=== PATIENT | male | born 2000 | race Hispanic/Latino ===

== ENCOUNTER 2023-09-16 16:07 | Emergency (ER) | payer OTHER, SELFPAY ==
[2023-09-16 16:17] VITALS: BP 128/68; PULSE 104; RESP 18; TEMP 37.7; O2SAT 99; BMI 23.3
[2023-09-16 17:08] LABS: Influenza A - CEPHEID Flu A NEGATIVE (NEGATIVE); Influenza B - CEPHEID Flu B NEGATIVE (NEGATIVE); Respiratory Syncytial Virus Negative (Negative)
[2023-09-16 17:28] LABS: COVID-19 CEPHEID 4-PLEX PCR POSITIVE (Negative)
--- NOTE | 2023-09-16 18:38 | ED.URI ---
HPI - URI/Sore Throat <Beatrice Goodman PA-C - Last Filed: 09/16/23 18:43> General Chief Complaint: Upper Respiratory Symptoms Stated Complaint: cough, fever, headache Time Seen by Provider: 09/16/23 18:28 Source: patient Mode of arrival: Ambulatory History of Present Illness HPI Narrative: Patient is a 23-year-old male for evaluation of possible COVID x3 days. He denies having had COVID before, but does report previous vaccination. He states his main symptom is coughing. He denies any shortness of breath. He notes chest pain only when he coughs. He denies sore throat. He states that Sunday was his worst symptoms of fever, but he is feeling somewhat better today. He was advised by a nurse at his work to follow up in the hospital for testing. Related Data Allergies Allergy/AdvReac Type Severity Reaction Status Date / Time No Known Drug Allergies Allergy Verified 09/16/23 16:17 Review of Systems <Beatrice Goodman PA-C - Last Filed: 09/16/23 18:43> Review of Systems Narrative: See HPI Patient History <Beatrice Goodman PA-C - Last Filed: 09/16/23 18:43> Social History Smoking Status: Never smoker Smoking Status: Never smoker Substance Use Type: does not use Exam <RISHABH Gutiérrez Last Filed: 09/16/23 18:43> Initial Vital Signs Initial Vital Signs: Vital Signs Temperature 99.9 F H 09/16/23 16:17 Pulse Rate 104 H 09/16/23 16:17 Respiratory Rate 18 09/16/23 16:17 Blood Pressure 128/68 09/16/23 16:17 Pulse Oximetry 99 09/16/23 16:17 Oxygen Delivery Method Room Air 09/16/23 16:17 GENERAL: 23 year old patient appears stated age. Well-developed patient, in no acute distress. HEAD: Atraumatic. Normocephalic. EYES: Pupils equal round and reactive. No scleral icterus. No injection or drainage. ENT: Nose with rhinorrhea. Nasal mucosa edematous with erythema. Nares are without bleeding or purulent drainage. NECK: Trachea midline. Non tender CARDIOVASCULAR: Regular rate and rhythm without murmurs, gallops, or rubs. RESPIRATORY: Clear to auscultation. Breath sounds equal bilaterally. No wheezes, rales, or rhonchi. NEURO: AOx3. SKIN: No rash or erythema of visible areas <Leigh Ellis DO - Last Filed: 09/17/23 01:03> Initial Vital Signs Initial Vital Signs: Vital Signs Temperature 99.9 F H 09/16/23 16:17 Pulse Rate 104 H 09/16/23 16:17 Respiratory Rate 18 09/16/23 16:17 Blood Pressure 128/68 09/16/23 16:17 Pulse Oximetry 99 09/16/23 16:17 Oxygen Delivery Method Room Air 09/16/23 16:17 Course <Beatrice Goodman PA-C - Last Filed: 09/16/23 18:43> Orders Ordered: ED Orders 09/16/23 16:23 Covid-19 + FLU A/B + RSV - PCR Stat Vital Signs Vital signs: Vital Signs - 8 hr 09/16/23 18:42 Temperature 99.6 F Pulse Rate 88 Respiratory Rate 16 Blood Pressure 132/62 Pulse Oximetry 98 Oxygen Delivery Method Room Air <Leigh Ellis DO - Last Filed: 09/17/23 01:03> Orders Ordered: ED Orders 09/16/23 16:23 Covid-19 + FLU A/B + RSV - PCR Stat Vital Signs Vital signs: Vital Signs - 8 hr 09/16/23 18:42 Temperature 99.6 F Pulse Rate 88 Respiratory Rate 16 Blood Pressure 132/62 Pulse Oximetry 98 Oxygen Delivery Method Room Air MDM - URI/Sore Throat <Beatrice Goodman PA-C - Last Filed: 09/16/23 18:43> Lab Data Labs: Lab Results 09/16/23 Range/Units 16:23 SARS-CoV-2 (PCR) Positive H (Negative) Influenza A (RT-PCR) Flu a negative (NEGATIVE) Influenza B (RT-PCR) Flu b negative (NEGATIVE) RSV (PCR) Negative (Negative) MDM Narrative Medical decision making narrative: Patient is a 23-year-old male presenting for evaluation of upper respiratory symptoms. He was diagnosed with COVID. He is not having any shortness of breath and has been able to take care of himself at home. Vital signs are reassuring today with minor tachycardia and elevated temperature of 99.9? F. He denies any diabetes or other immunocompromising conditions. We discussed that Paxlovid is not recommended for his age group without any comorbidities. He is agreeable with plan of care and will continue conservative management at home with increase fluids, Tylenol and ibuprofen. Multiple etiologies for patient's symptoms considered including, but not limited to: COVID, flu, RSV, pneumonia, pneumothorax Labs reviewed and interpreted by myself: Positive COVID Findings and discharge diagnosis discussed with patient/family followed by verbalization of understanding Return precautions discussed with patient/family whom verbalize understanding of diagnosis and plan <Leigh Ellis DO - Last Filed: 09/17/23 01:03> Lab Data Labs: Lab Results 09/16/23 Range/Units 16:23 SARS-CoV-2 (PCR) Positive H (Negative) Influenza A (RT-PCR) Flu a negative (NEGATIVE) Influenza B (RT-PCR) Flu b negative (NEGATIVE) RSV (PCR) Negative (Negative) Discharge Plan Departure Patient Disposition: Home Clinical Impression: COVID-19 Instructions: COVID-19 Activity Restrictions/Additional Instructions: Thank you for coming in today for your care. You were diagnosed with COVID-19 today. I recommend supportive care with Tylenol and ibuprofen and swallows rest and increase fluids. We discussed CDC quarantine guidelines to include quarantine at home in the 1st 5 days after symptoms and if symptoms are improving with no fever after day 5, you may go out into the community with a mask for the following 5 days. Please monitor for shortness of breath, chest pain or worsening symptoms and follow up for further care if he should develop these symptoms. Referrals: ProviderChelsi [Primary Care Provider] - Stand Alone Forms: Patient Portal/API, Work Release Note ED Sign-out <Leigh Ellis DO - Last Filed: 09/17/23 01:03> Cosign ED Attending [place] Attestation: I was immediately available in the department for consultation. Documentation has been reviewed.
[2023-09-16 18:42] VITALS: BP 132/62; PULSE 88; RESP 16; TEMP 37.6; O2SAT 98
== END 2023-09-16 18:42 | disposition home or self-care (01) ==
PROVIDERS: Emergency Medicine; Emergency Provider Physician Assistant
DX: U07.1 COVID-19 (principal)
CPT/HCPCS: 0241U; 99281; 99282